=== PATIENT | female | born 1965 | race Caucasian/White ===

== ENCOUNTER 2021-08-15 07:46 | Day surgery (SDC) | payer OTHER, SELFPAY ==
[~2021-08-15] VITALS: Ht 157.5 cm; Wt 74.8 kg
[2021-08-15] MEDS ORDERED: LIDOCAINE 2% 100 MG/5 ML UJET TP ONE ×2 (09:34→10:00)
[2021-08-15] MEDS ORDERED: fentaNYL citrate 0.05 MG/ML VIAL ONE (09:34)
[2021-08-15] MEDS ORDERED: fentaNYL citrate 0.05 MG/ML VIAL IVP ONE (10:05)
== END 2021-08-15 10:50 | disposition home or self-care (01) ==
LOC: MOR 07:46 → MMU 07:47 → MOR 10:50
PROVIDERS: ATTEND Internal Medicine Gastroenterology
DX: Z12.11 Encounter for screening for malignant neoplasm of colon (principal); D12.3 Benign neoplasm of transverse colon; I10 Essential (primary) hypertension; E78.5 Hyperlipidemia, unspecified; E03.9 Hypothyroidism, unspecified; Z90.710 Acquired absence of both cervix and uterus; Z79.82 Long term (current) use of aspirin; Z79.899 Other long term (current) drug therapy
CPT/HCPCS: 45385; 87426; J3010